=== PATIENT | female | born 1975 | race African-American/Black ===

== ENCOUNTER → 2016-12-02 | Outpatient (CLI) | payer OTHER ==
[~2016-12-02] MED LIST: AMLODIPINE BESY10 MG PO; GLIPIZIDE10 MG PO; INVOKANA300 MG PO; JANUVIA PO; LISINOPRIL-HCTZ1 T15 PO; POTASSIUM CHLO10 MEQ PO; SIMVASTATIN20 MG PO; TYLENOL #3 PO
--- NOTE | ~2016-12-02 | CR173 ---
[facility] A Service [facility] RADIOLOGY TEXT RESULTS PATIENT: KAYLEE MCCOY LOCATION: [facility] : 71 UNIT #: [id number] AGE: [address]: Ashleigh Lowry MD SEX: F ORDER DR: [id number] [facility]. [place], [place] [address] [id number] O MR#: [id number] Acc #: [id number] NAME: KAYLEE MCCOY : 1975 SEX: F STUDY DATE/TIME: 12/02/2016 13:49 UNIT: [facility] ROOM: STUDY DESCRIPTION: CR Knee 3 Views Rt Attending Physician: Ashleigh Lowry M.D. Referring Physician: Ashleigh Lowry M.D. Ordering Physician: Ashleigh Lowry M.D. Primary Care Physician: Artem Damon M.D. MEDICAL IMAGING REPORT This report is preliminary unless electronic signature is present EXAM Right knee, 12/02/2016 HISTORY 41-year-old female with right knee pain and swelling for 2 years. COMPARISON Right knee, 06/16/2012 FINDINGS Three views of the right knee demonstrate no acute fracture or dislocation. Questionable trace joint effusion. Advanced degenerative changes of the patellofemoral joint and medial compartment. Mild lateral compartment degenerative changes. Soft tissues are unremarkable. IMPRESSION 1. No acute fracture or dislocation. 2. Suspected trace joint effusion. 3. 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 This has progressed significantly since the prior study from 06/16/2012. Dictated by... Chris Irizarry M.D. THIS IS AN ELECTRONICALLY VERIFIED REPORT Chris Irizarry M.D. at 12/03/2016 3:27 PM PAN/albert TD: 12/02/2016 22:53 JOB #: [id number] [facility] A Service [facility] RADIOLOGY TEXT RESULTS PATIENT: KAYLEE MCCOY LOCATION: [facility] #: [id number] : [birth year] UNIT #: [id number] AGE: [address]: Ashleigh Lowry MD SEX: F ORDER DR: MEDICAL IMAGING REPORT Page 1 of 1 COPY
== END | disposition home or self-care (01) ==
LOC: CRAD 13:21
DX: M17.11 Unilateral primary osteoarthritis, right knee (principal)
CPT/HCPCS: 73562